=== PATIENT | male | born 1960 | race Caucasian/White ===

== ENCOUNTER 2016-09-02 12:43 | Inpatient (IN) | payer OTHER ==
[2016-08-01 10:22] VITALS: BMI 32.0
--- NOTE | 2016-08-01 10:56 | PAT Medication Instructions ---
Service Date Aug 01, 2016. 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
[2016-08-01 12:09] LABS: BASO % 0.3 %; BASO ABS # 0.03 K/uL (0-0.2); COMPLETE YES; EOS % 2.7 %; HEMATOCRIT 45.8 % (42-52); IG% 0.5 %; LYMPH % 26.9 %; LYMPH ABS # 2.52 K/uL (1.2-3.4); MEAN CELL VOLUME 91.4 fL (80-100); MEAN CORPUSCULAR HEMOGLOBIN 32.3 pg (25-34); MEAN CORPUSCULAR HGB CONC 35.4 g/dl (32-36); MEAN PLATELET VOLUME 9.2 fL (7.4-10.4); MONO % 6.5 %; NEUT % 63.1 %; PLATELET COUNT 308 K/uL (130-400); RED BLOOD COUNT 5.01 M/uL (4.7-6.1); WHITE BLOOD COUNT 9.37 K/uL (4.8-10.8)
[2016-08-01 12:19] LABS: INR 0.9 (0.9-1.1); PROTHROMBIN TIME (PATIENT) 9.8 SECONDS (9.0-12.0)
[2016-08-01 12:46] LABS: BUN/CREATININE RATIO 21.2 (10-20); CALCIUM 9.1 mg/dl (8.5-10.1); CREATININE 0.89 mg/dl (0.60-1.40); POTASSIUM 4.1 mmol/L (3.5-5.1)
[2016-08-01 12:57] LABS: URINE APPEARANCE CLEAR (CLEAR); URINE BILIRUBIN NEG (NEG); URINE COLOR YELLOW; URINE NITRITE NEG (NEG); URINE SPECIFIC GRAVITY 1.017 (1.000-1.030); UROBILINOGEN NEG (NEG)
--- NOTE | 2016-08-01 13:05 | DIAGNOSTIC IMAGING REPORT ---
CHEST PREADMISSION(PA/LAT) CLINICAL HISTORY: Preoperative evaluation. COMPARISON STUDY: Chest radiograph July 15, 2015. FINDINGS: Lung volumes are mildly diminished. This is unchanged. There is no pneumothorax or pleural effusion. Cardiac size is normal. There is no evidence of pulmonary edema. There are post surgical findings within the left shoulder. IMPRESSION: No acute cardiopulmonary findings. Electronically signed by: Dionisio Dawson M.D. 08/01/2016 1:04 PM Dictated Date/Time: 08/01/2016 1:03 PM
[2016-08-01 13:09] LABS: MANUAL MICROSCOPIC REQUIRED? NO; REVIEW REQ? NO
--- NOTE | 2016-08-26 10:12 | HISTORY & PHYSICAL EXAMINATION ---
DATE OF ADMISSION: 09/02/2016 PREOPERATIVE HISTORY AND PHYSICAL SUBJECTIVE CHIEF COMPLAINT: Left shoulder pain. HISTORY OF PRESENT ILLNESS: The patient is a 56-year-old male that presents with left shoulder pain that is getting progressively worse over the past few years. He has tried physical therapy and injections without relief. He would like to proceed with a left shoulder resurfacing and possible removal of hardware. PAST MEDICAL HISTORY: Significant for osteoarthritis. PAST SURGICAL HISTORY: Includes [place] surgery of the left shoulder in 1981, right foot ganglion cyst removal x2, appendectomy and left shoulder hardware. SOCIAL HISTORY: He consumes alcohol occasionally. Denies smoking or tobacco product use. Denies IV drug use. He lives in a 2-sherin house. 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 MEDICATIONS: The patient takes Aleve as needed. ALLERGIES: Verapamil and doxycycline. REVIEW OF SYSTEMS: Denies fevers, chills, weakness, numbness and tingling, tired, thirsty, hot and cold intolerance, abdominal pain, nausea, vomiting, diarrhea, heartburn, chest pain, swelling into the legs or feet, frequency, going to the bathroom, pain or burning with urination, incontinence, wheezing, cough, shortness of breath, depression, thoughts to harm herself or harm others, nervousness and anxiousness. He is positive for joint pain, stiffness and swelling of the left shoulder. OBJECTIVE: GENERAL APPEARANCE: The patient is a 56-year-old male, sitting in no acute distress, well-dressed, well-nourished and the patient is awake, alert and oriented x3. VITAL SIGNS: The patient is 6 feet 8 inches weight 222 pounds, blood pressure 132/86. HEENT: Extraocular movements are intact. PERRLA. NECK: supple with no lymphadenopathy or JVD no thyromegaly. HEART: Regular rate and rhythm with no murmurs or gallops. LUNGS: Clear to auscultation with no wheezing or rhonchi. ABDOMEN: Soft, nontender, nondistended. Normal bowel sounds, no hepatosplenomegaly. EXTREMITIES: Paying particular attention to the left shoulder. He is able to actively flex to 90 degrees, abduct to 60 degrees, externally rotate to 35 degrees. He has decreased strength in all muscle movements. NEUROLOGIC: Cranial nerves II-XII are intact. Pulses were compared bilaterally and were normal. IMAGING: Two views of the left shoulder show stable hardware in the anterior glenoid degenerative humeral side with inferior osteophyte formation of the humeral head. IMPRESSION: Left shoulder degenerative changes and severe osteoarthritis. PLAN: The patient is scheduled to have a left shoulder resurfacing and possible removal of hardware. The patient has failed physical therapy, nonsteroidal anti-inflammatory injections. He notes that his left shoulder pain has decreased his quality of life and he would like to proceed with a left shoulder resurfacing and possible removal of hardware. Risks and benefits were discussed that were included but not limited to blood clot, DVT, blood vessel damage, nerve vessels damage, infection, failure to relieve all symptoms, revision surgeries and anesthesia risks all will discuss with the patient and he wishes to proceed. All questions were answered to his satisfaction. JACKIE
[~2016-09-02] VITALS: Ht 177.8 cm; Wt 101.3 kg
[2016-09-02] MEDS: TRANEXAMIC ACID INJ 1,000 MG in SODIUM CHLORIDE 0.9% 100ML 100 ML IV SCH ×2 (06:30→14:36)
[~2016-09-02 12:43] MED LIST: ACETAMINOPHEN 500 MG TAB PO SCH; ATROPINE SULFATE 0.1 MG/ML 5ML SYR IV PRN; CEFAZOLIN 2000 MG/60 ML D5W 60 ML IV SCH; CeleBREX 200 MG CAP PO SCH; DEXAMETHASONE 4 MG TAB PO SCH; EpHEDrine SULFATE INJ 50 MG/ML AMP IV PRN; FAMOTIDINE 20 MG TAB PO SCH; FENTANYL CITRATE INJ 50 MCG/1 ML 2 ML VIAL IV PRN; GABAPENTIN 300 MG CAP PO SCH; LACTATED RINGER'S 1000ML 1,000 ML IV SCH; LACTATED RINGER'S 1000ML IV SCH; METOCLOPRAMIDE HCL 10 MG TAB PO SCH; NAPR1TAB9 PO; ONDANSETRON INJ 2 MG/ML 2 ML VIAL IV PRN; ROPIVACAINE 0.5% 5 MG/ML 30 ML VIAL ONE; ROPIVACAINE 5MG/ML 30 ML 150 MG, BUPIVACAINE/EPINEPHR 0.5% MPF 30 ML, KETOROLAC TROMETH... INFIL SCH
[2016-09-02 12:58] VITALS: BP 141/91; PULSE 85; TEMP 37.1; O2SAT 97; Ht 177.8 cm; Wt 101.3 kg
[2016-09-02] MEDS ORDERED: DEXAMETHASONE SOD INJ 4 MG/ML VIAL ONE (14:00)
[2016-09-02] MEDS ORDERED: MIDAZOLAM HCL 1 MG/ML 2ML VIAL ONE (14:00)
[2016-09-02] MEDS ORDERED: ROCURONIUM BROMIDE 10 MG/ML 5 ML VIAL ONE ×2 (14:00→16:33)
[2016-09-02] MEDS ORDERED: LIDOCAINE HCL 2% 2 ML VIAL (20MG/ML) ONE (14:00)
[2016-09-02] MEDS ORDERED: ONDANSETRON INJ 2 MG/ML 2 ML VIAL ONE (14:00)
[2016-09-02] MEDS ORDERED: PROPOFOL IV EMULSION 10 MG/ML 20 ML VIAL IV ONE (14:00)
[2016-09-02] MEDS ORDERED: NEOSTIGMINE METHYLSULFATE 5 MG/5 ML SYR ONE (14:00)
[2016-09-02] MEDS ORDERED: FENTANYL CITRATE INJ 50 MCG/1 ML 2 ML VIAL ONE ×2 (14:00→18:56)
[2016-09-02] MEDS ORDERED: GLYCOPYRROLATE INJ 0.2 MG/ML VIAL ONE (14:00)
--- NOTE | 2016-09-02 14:01 | History & Physical Bridge Note ---
H&P Re-Evaluation Bridge Note: I have examined the patient, reviewed the History & Physical and in the interval since the performance of the History & Physical I have noted the following changes of clinical significance: No changes noted
[2016-09-02] MEDS ORDERED: ORTHO JOINT ANESTHETIC ONE (14:26)
[2016-09-02] MEDS ORDERED: BACITRACIN 50000 UNIT VIAL ONE (14:26)
[2016-09-02] MEDS ORDERED: POVIDONE-IODINE OP SOLN 30 ML BTL ONE (14:26)
--- NOTE | 2016-09-02 18:39 | [facility] Post Operative Brief Note ---
Immediate Operative Summary Operative Date Sep 02, 2016. Pre-Operative Diagnosis Left shoulder djd, s/p rosa Post-Operative Diagnosis Same as preoperative diagnosis Procedure(s) Performed Left shoulder resurfacing and removal of deep hardware Surgeon Dr. Castillo [employer] Beauty Advisor Surgeon(s) Josh Gandhi PA-C Estimated Blood Loss 200 Findings bone transfer was well healed, irregularity to shape of humeral head with degenerative changes Specimens 0 Drains 1 hemovac Anesthesia geta Complication(s) None Disposition Recovery Room / PACU
[2016-09-02] MEDS ORDERED: METOCLOPRAMIDE HCL INJ 5 MG/ML 2 ML VIAL IV PRN (19:45)
[2016-09-02] MEDS ORDERED: OXYCODONE HCL IR 5 MG TAB (IMMEDIATE RELEASE) PO PRN (19:45)
[2016-09-02] MEDS ORDERED: ALUMINUM/MAGNESIUM SUSP 30 ML UDC PO PRN (19:45)
[2016-09-02] MEDS ORDERED: ZOLPIDEM TARTRATE 5 MG TAB PO PRN (19:45)
[2016-09-02] MEDS ORDERED: ONDANSETRON INJ 2 MG/ML 2 ML VIAL IV PRN (19:45)
[2016-09-02] MEDS ORDERED: MoRPHine SULFATE 2 MG/ML CARP IV PRN (19:45)
--- NOTE | 2016-09-02 19:47 | Anesthesiology Progress Note ---
Anesthesia Post Op Note Date & Time Sep 02, 2016 at 19:47 Vital Signs Pain Intensity: 0 Vital Signs Past 12 Hours Date Time Temp Pulse Resp B/P Pulse Ox O2 Delivery O2 Flow Rate FiO2 09/02/16 19:35 85 16 112/75 97 Nasal Cannula 3 09/02/16 19:25 84 16 114/75 97 Nasal Cannula 3 09/02/16 19:15 90 16 110/73 98 Mask 10 09/02/16 19:05 83 16 116/83 98 Mask 10 09/02/16 19:04 36.7 83 16 121/80 98 Mask 10 09/02/16 12:58 37.1 85 18 141/91 97 Room Air Notes Mental Status: alert / awake / arousable, participated in evaluation Pt Amnestic to Procedure: Yes Nausea / Vomiting: adequately controlled Pain: adequately controlled Airway Patency, RR, SpO2: stable & adequate BP & HR: stable & adequate Hydration State: stable & adequate Anesthetic Complications: no major complications apparent
[2016-09-02 20:15] VITALS: BP 118/77; PULSE 77; TEMP 36.6; O2SAT 97
--- NOTE | 2016-09-02 20:26 | DIAGNOSTIC IMAGING REPORT ---
LEFT SHOULDER MIN 2 VIEWS ROUTINE CLINICAL HISTORY: Postoperative evaluation of the left shoulder. COMPARISON: Left shoulder radiographs December or 2015. FINDINGS: Alignment of the left shoulder hemiarthroplasty is anatomic. There is no fracture or unexpected radiopaque body. There are skin nancy. Previous glenoid surgery is noted. IMPRESSION: Expected postoperative findings within the left shoulder. Electronically signed by: Dionisio Dawson M.D. 09/02/2016 8:24 PM Dictated Date/Time: 09/02/2016 8:24 PM
[2016-09-02 20:45] VITALS: BP 109/77; PULSE 66; TEMP 37.1; O2SAT 97
[2016-09-02 21:16] VITALS: BP 118/78; PULSE 76; O2SAT 97
[2016-09-02] MEDS: D5W AND 1/2NSS + 20MEQ KCL 1,000 ML IV SCH (21:37)
[2016-09-02] MEDS: OXYCODONE HCL 10 MG TABCR (OXYCONTIN) PO SCH (22:03)
[2016-09-02] MEDS: PREGABALIN 75 MG CAP PO SCH (22:04)
[2016-09-02] MEDS: ACETAMINOPHEN 500 MG TAB PO SCH (22:07)
[2016-09-02 22:15] VITALS: BP 111/73; PULSE 70; TEMP 36.3; O2SAT 97
[2016-09-02 23:15] VITALS: BP 106/69; PULSE 84; TEMP 36.6; O2SAT 96
[2016-09-02] MEDS: KETOROLAC TROMETHAMINE 30 MG/ML VIAL IV. SCH (23:30)
[2016-09-02] MEDS: CEFAZOLIN IV 2,000 MG in DEXTROSE 5% 50ML 50 ML IV SCH (23:37)
[2016-09-03 03:14] VITALS: BP 104/65; PULSE 66; TEMP 36.5; O2SAT 97
--- NOTE | 2016-09-03 04:52 | OPERATIVE REPORT ---
DATE OF OPERATION: 09/02/2016 PREOPERATIVE DIAGNOSIS: Left shoulder degenerative joint disease status post Laci transfer. POSTOPERATIVE DIAGNOSIS: Same. PROCEDURE: Left shoulder humeral resurfacing and removal of hardware deep from the glenoid. SURGEON: Ervin Castillo MD PER DIEM NURSE: Josh Gandhi PA-C who was necessary for assistance of procedure with positioning, prepping, draping, retraction and closure. ANESTHESIA: General endotracheal anesthesia with interscalene block. SPECIMENS: None. COMPLICATIONS: None. ESTIMATED BLOOD LOSS: 200 mL. IMPLANTS: Exactech resurfacing with 25 mm humeral cage 47 mm x 16 mm resurfacing head. INDICATIONS: The patient is a 56-year-old male, who had a number of years ago undergone at another facility a Laci coracoid transfer for treatment of instability. He had a new injury. He had obvious loss of fixation of the fragment with a nonunion and prominence of the screw. I performed a revision procedure with 3.0 headless cannulated screws. The fragment appeared to heal, his instability resolved, but he had persistent pain in the shoulder. He developed degenerative changes with inferior osteophyte formation off of the humeral head and joint space narrowing. Failing conservative measures including injection, anti-inflammatories and physical therapy, he wished to proceed with surgery. Risks, benefits and alternatives of surgery including but not limited to infection, DVT, pain, stiffness, need for urgent surgery, failure to relieve all symptoms, damage to blood vessels, damage to nerves, risks of anesthesia were discussed with the patient and he wished to proceed. We elected to proceed with a shoulder resurfacing given his relatively young age and high activity level. DESCRIPTION OF PROCEDURE: The patient was identified, laterality was confirmed and marked. He received a preoperative antibiotic as well as interscalene block. He was placed in supine position and then placed in a slight beach chair type position with the Tenet positioner. Shoulder was prepped and draped in usual sterile manner with ChloraPrep. Arms were secured with the spider positioner. I reutilized his previous anterior surgical approach sharply incising the skin utilizing Bovie electrocautery to achieve hemostasis. Developed the deltopectoral interval. He had fairly significant amount of scars, difficult to initially find the deltopectoral interval once again, once we had developed this, we were able to identify the deltoid. There were significant adhesions of the deltoid to the humerus, they were debrided with a Reyes elevator. I identified the region of his previous subscapularis repair. There were two suture anchors that were removed and a previous suture that was removed. I elevated the subscapularis off with a peel type technique. There was fair amount of interposed scar both superficial as well as deep to the subscapularis that was mobilized. I then placed a Fukuda retractor to mobilize the humeral head and evaluate the glenoid. We had good visualization of the glenoid vault with the Fukuda retractor in place, cartilage of the glenoid was okay. There was no motion to the transferred fragment upon probing. The screw heads were not prominent and at this stage did not appear to be removed. We then turned our attention to the resurfacing portion of the procedure. He had some irregularity to the humeral head, it was flattened anteriorly as well as centrally. This is either secondary to degenerative change or some early avascular necrotic type change. We had difficulty in getting proper exposure to the humeral head as we are having difficulty in achieving external rotation as he had had instability procedures as well as a Laci transfer to limit his external rotation and increase the shoulder stability. Did some further releasing little bit more distally on the humerus and then we needed to piece the guide pin and reamer in situ as opposed to the standard placing of the guide pin and then placing the reamer over top. We placed the reamer in position after we had placed the guide pin with the aiming guide and then placed the reamer into the shoulder, then placed the guide pin through this and then assembled the reamer on power and reamed down to bone. The reamer initially started with a size 50 which was a little too large, so we downsized to a size 47. We had reaming of the peripheral bone, but was not getting quite down to the central part of the humeral head as the head had flattened a bit. We debrided this with combination of a curette and rongeur to establish good bleeding bony bed. I then over reamed to a depth of 25 mm over the guide pin and then attempt for spikes for the post. There was some inferior osteophytes that we debrided as well as some anterior osteophytes, this local bone was then morselized and placed into the post for resurfacing. I then impacted the post leaving the post a little bit proud and then I engaged the definitive humeral head after I checked it with a trial, this was a 25 mm humeral cage with a 47 mm x 16 mm resurfacing head. I then impacted into the stem and then impacted this down completely and then down flush to bone. I then reexamined the glenoid and some of the soft tissue more anteriorly that I had placed over the screw heads on an initial procedure then peeled off during the manipulation by getting exposure to the humeral head. One of the screw heads was a little bit I thought too prominent without the soft tissue covering it, so we removed one of the screws. The other two did not appear to be in any position which should cause any difficulty and were left in place. The wound was thoroughly irrigated. The deep tissues were anesthetized with an ortho mix solution. I then repaired the subscapularis first by placing a 5.5 mm Healicoil suture anchor into the lesser tuberosity and passed the 3 sutures in a horizontal mattress fashion and then completing a double row type repair laterally with a running #5 FiberWire. The rotator interval was then closed with interrupted #2 Ultrabraid suture. The wound was irrigated once again. Betadine soak was performed. A deep drain was placed. The deltopectoral interval was closed with interrupted #1 Ethibond sutures, subcutaneous tissue was closed with interrupted 2-0 Vicryl suture and the skin with nancy. Sterile dressing was applied and sling placed. All needle and sponge counts were correct at the end of the procedure. The patient was transferred to the PACU in stable condition without apparent complication. I attest to the content of the Intraoperative Record and any orders documented therein. Any exceptions are noted below. JACKIE
[2016-09-03] MEDS: KETOROLAC TROMETHAMINE 30 MG/ML VIAL IV. SCH (05:40)
[2016-09-03] MEDS: ACETAMINOPHEN 500 MG TAB PO SCH (05:40)
[2016-09-03 06:53] LABS: HEMATOCRIT 39.2 % (42-52); MEAN CELL VOLUME 90.1 fL (80-100); MEAN CORPUSCULAR HEMOGLOBIN 31.3 pg (25-34); MEAN CORPUSCULAR HGB CONC 34.7 g/dl (32-36); MEAN PLATELET VOLUME 8.9 fL (7.4-10.4); PLATELET COUNT 305 K/uL (130-400); RED BLOOD COUNT 4.35 M/uL (4.7-6.1); WHITE BLOOD COUNT 19.68 K/uL (4.8-10.8)
[2016-09-03 07:20] LABS: BUN/CREATININE RATIO 14.8 (10-20); CALCIUM 8.1 mg/dl (8.5-10.1); CREATININE 1.1 mg/dl (0.60-1.40); POTASSIUM 4.3 mmol/L (3.5-5.1)
[2016-09-03 07:22] VITALS: BP 115/69; PULSE 58; TEMP 36.4; O2SAT 98
[2016-09-03] MEDS: CEFAZOLIN IV 2,000 MG in DEXTROSE 5% 50ML 50 ML IV SCH (07:27)
[2016-09-03] MEDS: D5W AND 1/2NSS + 20MEQ KCL 1,000 ML IV SCH (07:27)
--- NOTE | 2016-09-03 07:58 | Orthopedic Progress Note ---
Orthopedic Progress Note Date of Service Sep 03, 2016. Subjective Post OP Day: 1 (Left shoulder resurfacing and removal of deep hardware) Reports: feeling well, pain controlled w PO medications, Denies: SOB, calf pain , chest pain, complaints, light headedness, nausea / vomiting Objective N/V intact, capillary refill less than 2 sec., dressing C/D/I, A&O x3 radial/med/ulnar nerves intact Date Time Temp Pulse Resp B/P Pulse Ox O2 Delivery O2 Flow Rate FiO2 09/03/16 07:22 36.4 58 16 115/69 98 Room Air 09/03/16 03:14 36.5 66 16 104/65 97 Room Air 09/02/16 23:30 Nasal Cannula 2.0 09/02/16 23:15 36.6 84 18 106/69 96 Nasal Cannula 2.0 09/02/16 22:15 36.3 70 18 111/73 97 Nasal Cannula 3.0 09/02/16 21:16 76 16 118/78 97 Nasal Cannula 2.0 09/02/16 20:45 37.1 66 18 109/77 97 Nasal Cannula 3.0 09/02/16 20:15 97 Nasal Cannula 3.0 09/02/16 20:15 36.6 77 16 118/77 97 Nasal Cannula 3.0 09/02/16 20:15 97 Nasal Cannula 3.0 09/02/16 19:59 78 18 107/71 98 Nasal Cannula 3 09/02/16 19:45 36.7 79 18 108/71 97 Nasal Cannula 3 09/02/16 19:35 85 16 112/75 97 Nasal Cannula 3 09/02/16 19:25 84 16 114/75 97 Nasal Cannula 3 09/02/16 19:15 90 16 110/73 98 Mask 10 09/02/16 19:05 83 16 116/83 98 Mask 10 09/02/16 19:04 36.7 83 16 121/80 98 Mask 10 09/02/16 12:58 37.1 85 18 141/91 97 Room Air Laboratory Results 24 Hours: Test 09/03/16 06:40 Hematocrit 39.2 % Hemoglobin 13.6 g/dL Assessment & Plan Assessment: POD #1 s/p Left shoulder resurfacing and removal of deep hardware -will do PT today, if tolerates will d/c home. plan for [facility] in the office in two weeks, sooner if having any issues Discharge Planning Discharge Planning: home with oppt
[2016-09-03] MEDS ORDERED: ONDA8TAB6 PO (08:00)
[2016-09-03] MEDS ORDERED: CLB200 PO (08:00)
[2016-09-03] MEDS ORDERED: OXYSR10 PO (08:00)
[2016-09-03] MEDS ORDERED: ACET-1138 PO (08:00)
[2016-09-03] MEDS ORDERED: RXC5 PO (08:00)
--- NOTE | 2016-09-03 08:02 | Discharge Instructions ---
Discharge Instructions Admission Reason for Admission: Left Shoulder Osteoarthritis Discharge Discharge Diagnosis / Problem: Left shoulder resurfacing and removal of deep hardware Discharge Goals Goal(s): Decrease discomfort, Improve function, Increase independence Activity Recommendations Activity Limitations: as noted below Lifting Limitations: until after follow-up appointment (no lifting left arm) . Instructions / Follow-Up Instructions / Follow-Up ACTIVITY RECOMMENDATIONS: SELF CARE INSTRUCTIONS AFTER TOTAL SHOULDER ARTHROPLASTY A. You may do daily exercises as taught in physical therapy while in hospital. No lifting with the operative arm. Please schedule your outpatient physical therapy appointment to begin within 2-3 days after leaving the hospital. Specific restrictions will be written on your physical therapy prescription that is provided to you. B. You are to wear your sling/immobilizer at all times EXCEPT when performing your daily exercises, participating in physical therapy and for hygiene purposes. C. You may perform dry, daily dressing changes. Please keep your incision covered. You may shower 48 hours after surgery. Do not apply soap or any ointment/ lotions directly over incision. Do not soak incision in bath tub/swimming pool. D. You may use ice as needed to operative shoulder. SPECIAL CARE INSTRUCTIONS: VERY IMPORTANT TO READ AND REVIEW A. There are a few signs you need to watch for after you are home. Call [facility] at [phone] if you experience any of the followin. Increased severe shoulder pain. Some pain is expected especially when you exercise. 2. Increased swelling in you shoulder or arm; pain or swelling in either upper extremity. 3. Any fluid drainage from the incision. 4. Shortness of breath or chest pain. B. Please call [facility] at [phone] if you have any questions or concerns about your operation or recovery. C. Call your physician if: 1. Temperature is greater than 101 degrees (F). 2. Pain is not relieved by prescribed pain medications. 3. Increase drainage or redness from incision. 4. Unanswered questions or concerns. FOLLOW UP VISIT: Please call [facility] at [phone] to schedule a follow up appointment with Dr. Castillo or his PA in 12-14 days from your surgery date. Current Hospital Diet Patient's current hospital diet: Regular Diet Discharge Diet Recommended Diet: Regular Diet Procedures Procedures Performed: Left shoulder resurfacing and removal of deep hardware Pending Studies Studies pending at discharge: no Medical Emergencies . Who to Call and When: Medical Emergencies: If at any time you feel your situation is an emergency, please call 911 immediately. . Non-Emergent Contact Non-Emergency issues call your: Primary Care Provider, Surgeon . "Provider Documentation" section prepared by Gerald Tafoya. VTE Core Measure Inpt VTE Proph given/why not?: LISA Ulrich's [place] Drug Monitoring Program Search Results: patient reviewed within database, no issues identified
[2016-09-03] MEDS ORDERED: FERROUS GLUCONATE 324 MG TAB PO SCH (08:30)
[2016-09-03] MEDS: PREGABALIN 75 MG CAP PO SCH (08:54)
[2016-09-03] MEDS: OXYCODONE HCL 10 MG TABCR (OXYCONTIN) PO SCH (08:54)
[2016-09-03] MEDS ORDERED: MULTIVITAMIN TAB PO SCH (09:00)
[2016-09-03] MEDS ORDERED: PANTOprazole SOD 40 MG TAB PO SCH (09:00)
[2016-09-03 10:30] VITALS: BP 115/69; PULSE 58; TEMP 36.4; O2SAT 98
[2016-09-04] MEDS ORDERED: CeleBREX 200 MG CAP PO SCH (09:00)
--- NOTE | 2016-09-07 14:36 | DISCHARGE SUMMARY ---
ADMISSION DIAGNOSIS: Left shoulder osteoarthritis. DISCHARGE DIAGNOSIS: Left shoulder resurfacing and removal of deep hardware. CONSULTS: None. PROCEDURES: On 09/02/2016 the patient had the removal of deep hardware and resurfacing of the left shoulder. HISTORY OF PRESENT ILLNESS: The patient is a 56-year-old male that presents with left shoulder pain that is getting progressively worse over the past few years. He has tried physical therapy and injections without relief. He would like to proceed with a left shoulder resurfacing and possible removal of hardware. HOSPITAL COURSE: Postop day 1 the patient is feeling well. Pain is controlled with p.o. medications. He denies shortness of breath, chest pain, lightheadedness, nausea or vomiting. His radial, median, and ulnar nerves were intact. The dressing was clean, dry and intact. He was to do physical therapy today. If tolerated he would be discharged to home. Plan is for outpatient physical therapy at [facility]. DISCHARGE CONDITION: Stable. DISPOSITION: Home with self care. MEDICATIONS: Acetaminophen 1000 mg by mouth every 8 hours, Celebrex 200 mg by mouth twice daily, Zofran 8 mg by mouth every 8 hours as needed for nausea, OxyContin 10 mg by mouth every 12 hours, oxycodone 5-10 mg by mouth every 4 hours as needed for pain. INSTRUCTIONS: The patient is to have no lifting of the left arm. The patient may do daily exercises as taught in physical therapy. No lifting with his operative arm. He is to schedule outpatient physical therapy 2-3 days after leaving the hospital. He is to wear the sling or immobilizer at all times except when performing daily exercises and participating in hygiene purposes. He is to perform dry daily dressing changes, keep the incision covered, no use of ointment or lotions directly over the incision, no soaking in bathtubs or swimming pools. He is to call [facility] if he notices an increase in shoulder pain, increase in swelling or drainage from the incision site, shortness of breath or chest pain. He is to follow up with Dr. Castillo or his PA 12-14 days from the day of the surgery. JACKIE
== END 2016-09-03 11:13 | disposition home or self-care (01) | DRG 508 ==
LOC: ENRESERVTM → ENRESERVDT → C.ACU 12:43 → C.3E 13:54
PROVIDERS: ADMIT Orthopaedic Surgery; ATTEND Orthopaedic Surgery
PROC: 0RUK0JZ Supplement Left Shoulder Joint with Synthetic Substitute, Open Approach (ICD-10-PCS; principal; 2016-09-02 15:15)
PROC: 0RPK04Z Removal of Internal Fixation Device from Left Shoulder Joint, Open Approach (ICD-10-PCS; principal; 2016-09-02 15:15)
DX: M19.012 Primary osteoarthritis, left shoulder (principal); E66.9 Obesity, unspecified; Z68.32 Body mass index [BMI] 32.0-32.9, adult; Z72.0 Tobacco use

== ENCOUNTER 2020-11-19 11:03 | Inpatient (IN) ==
--- NOTE | 2020-10-30 14:21 | PAT Medication Instructions ---
Medication Instructions Date of Service October 30, 2020 Home Medications multivitamin 1 tab PO QAM DO NOT take the morning of surgery multivitamin 1 tab PO QAM Other Notes If you have any questions please call us at [phone] or [phone] or [phone] or [phone]
--- NOTE | 2020-11-03 12:55 | Anesthesiology Consultation ---
Date of Service November 03, 2020 Assessment & Plan (1) Encounter for pre-operative examination: Chart Review Chart Review: Acceptable Risk for Surgery (pending preop Covid testing results ) and Patient seen in Pre Admission Testing Per PAT appt on 11/03/20, patient denies any recent travel. No known Covid positive contacts or Covid related symptoms. No known Covid infections in the past 90 days. Preop Covid testing scheduled 11/12/20= will await results. Educated on importance of self quarantining, social distancing and wearing mask in public both for the patient and household contacts. Left shoulder arthroscopy, open hardware removal, glenoid revision 07/31/2015 = done under [place] with glide scope #4. ETT #7.5. Atraumatic. Teaching & Discussion Pre-Anesthesia Teaching/Discussion Notes: Instructed NPO after midnight before surgery,except medications with 15 cc of water. Medication instructions provided according to the [facility] guidelines. History Surgery Operation Date: 11/19/20 11:00 Proposed Procedures p Left Shoulder Convert Zaid Arthroplasty to Reveresed Total Arthroplasty(Left) - Nura Abreu MD Height/Weight Height: 5 ft 8.5 in Weight: 85.5 kg Allergies Allergy/AdvReac Type Severity Reaction Status Date / Time doxycycline Allergy Mild RASH, AND Verified 10/30/20 10:48 NASAL/EAR SWELLING verapamil Allergy Mild RASH Verified 10/30/20 10:48 Medications Home Medications Medication Instructions Recorded Confirmed Last Taken multivitamin 1 tab PO QAM 03/29/19 10/30/20 Unknown Past Medical History Medical History (Updated 11/03/20 @ 16:33 by Juliane Cherry PA-C) Arthritis 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 many years ago History of shock Many years ago- had electrocution - sinus arrhythmia now on EKG 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 [employer] History of skin cancer S/p removal - above lip- had plastic surgery afterwards Hx of migraines SNHL (sensorineural hearing loss) No hearing aids Exercise / Class Metabolic Activity II 4-5 Yardwork/Stairs/Walk up hill (one flight of stairs - no chest pain or SOB ) Past Family History Family History Mother Hypertension Myocardial infarction 80s Coronary heart disease Father Hypertension Lung cancer Myocardial infarction mid 70's Coronary heart disease Brother Seizures Coronary heart disease Other No family history of adverse response to anesthesia No family history of bleeding disorder Denies family history of Ovarian cancer Prostate cancer Breast cancer Colorectal cancer Past Surgical History Surgical History H/O foot surgery Right x 2 (CYST REMOVED) H/O metal removed from eye H/O shoulder surgery LEFT X 5 H/O wrist surgery LEFT History of colonoscopy Hx of appendectomy [place] teeth removed Past Anesthesia History No Hx of Anesthesia Complications and No Family Hx of Anesthesia Complications History of PONV No Hx of PONV and No Hx of Motion Sickness Social History Smoking Status: Never smoker tobacco type: smokeless tobacco Do You Dip or Chew Tobacco: Yes (1 CAN EVERY 2 DAYS) Hx Alcohol Use: No Hx Substance Use: No Review of Systems Hx of snoring - did have sleep study- no MARÍA ELENA per patient Patient denies chest pain, shortness of breath, dyspnea on exertion, reflux, cough, wheezing, palpitations. No hx of seizures, stroke, [place]. No hx of blood clots or blood transfusions Physical Exam Vital Signs VITALS BP 124/80 P 64 TEMP 97.5 SP02 98% RESP 16 Constitutional no acute distress ENMT Mouth: no TMJ clicking Thyromental Distance: > or= 3.5 Finger Breadths (3.5) Mallampati Class: II Missing molars Caps and crowns to molars and side teeth Neck + limited neck extension (mild to moderate ) Respiratory normal respiratory effort; no respiratory distress Auscultation: lungs clear to auscultation bilaterally; no wheezes Cardiovascular Rate/Rhythm: regular rate and regular rhythm Heart Sounds: no murmur Vessels: no carotid bruit Musculoskeletal Spine: + pain with cervical ROM Extremities: extremities normal to inspection Psychiatric Orientation: alert Testing Laboratory Results 11/03/20 13:20 11/03/20 13:20 PT 9.7 Seconds (9.0-12.0) 11/03/20 13:20 INR 1.0 (0.9-1.1) 11/03/20 13:20 APTT 27.6 Seconds (21.0-31.0) 11/03/20 13:20 Urine Color Yellow 11/03/20 13:20 Urine Appearance Clear (Clear) 11/03/20 13:20 Urine pH 7.5 (4.5-7.5) 11/03/20 13:20 Ur Specific [place] 1.007 (1.000-1.030) 11/03/20 13:20 Urine Protein Negative (Negative) 11/03/20 13:20 Urine Glucose (UA) Negative (Negative) 11/03/20 13:20 Urine Ketones Negative (Negative) 11/03/20 13:20 Urine Nitrite Negative (Negative) 11/03/20 13:20 Ur Leukocyte Esterase Negative (Negative) 11/03/20 13:20 Blood Type O Positive 11/03/20 13:20 Antibody Screen NEGATIVE 11/03/20 13:20 Electrocardiogram Date: 11/03/20 Sinus bradycardia with marked sinus arrhythmia at 49 bpm. Otherwise normal EKG. Compared to EKG from August 01, 2016no significant change was found. Chest X-Ray Date: 11/03/20 Findings: + NAD
--- NOTE | 2020-11-03 13:51 | XRay Report ---
XR chest Pre-admission PA/Lat CLINICAL HISTORY: Preoperative evaluation. COMPARISON STUDY: Chest radiograph August 01, 2016. FINDINGS: Lung volumes are normal. Lungs are clear. There is no pneumothorax or pleural effusion. Car diac size is normal. Mediastinal contours are normal. There is no evidence for pulmonary edema. Posto perative findings within the left shoulder are incidentally noted. IMPRESSION: No acute cardiopulmonary findings. ACT 112: Negative or not required by law. Electronically signed by: Dionisio Dawson M.D. 11/03/2020 1:50 PM
[2020-11-03 13:55] LABS: Basophils # (auto) 0.05 K/uL (0-0.2); Basophils % (auto) 0.6 %; Eosinophils # (auto) 0.51 K/uL (0-0.5); Eosinophils % (auto) 5.7 %; Hematocrit (blood only) 45.5 % (42-52); Immature Granulocytes # (auto) 0.02 K/uL (0.00-0.02); Immature Granulocytes % (auto) 0.2 %; Lymphocytes # (auto) 2.69 K/uL (1.2-3.4); Lymphocytes % (auto) 30.1 %; Mean Corpuscular Hemoglobin 31.2 pg (25-34); Mean Corpuscular Hgb Conc 35.2 g/dL (32-36); Mean Corpuscular Volume 88.7 fL (80-100); Mean Platelet Volume 9.1 fL (7.4-10.4); Monocytes # (auto) 0.68 K/uL (0.11-0.59); Monocytes % (auto) 7.6 %; Neutrophils # (auto) 4.98 K/uL (1.4-6.5); Neutrophils % (auto) 55.8 %; Platelet Count 307 K/uL (130-400); RDW Coefficient of Variation 12.4 % (11.5-14.5); Red Blood Count 5.13 M/uL (4.7-6.1); White Blood Count 8.93 K/uL (4.8-10.8)
--- NOTE | 2020-11-03 14:10 | Electrocardiogram Report ---
Test Reason : Blood Pressure : / mmHG Vent. Rate : 049 BPM Atrial Rate : 049 BPM P-R Int : 160 ms QRS Dur : 086 ms QT Int : 434 ms P-R-T Axes : 033 049 054 degrees QTc Int : 392 ms Sinus bradycardia with marked sinus arrhythmia Otherwise normal ECG When compared with ECG of 01-AUG-2016 11:04, No significant change was found Confirmed by Festus Koehler ([id number]) on 11/03/2020 2:09:51 PM Referred By: Nura Abreu Confirmed By:Festus Koehler
[2020-11-03 14:12] LABS: Partial Thromboplastin Time 27.6 Seconds (21.0-31.0); Prothrombin Time 9.7 Seconds (9.0-12.0)
[2020-11-03 14:29] LABS: Appearance Urine Clear (Clear); Bilirubin Urine Negative (Negative); Blood Urine Negative (Negative); Color Urine Yellow; Glucose Urine UA Negative (Negative); Ketones Urine Negative (Negative); Leukocyte Esterase Urine Negative (Negative); Nitrite Urine Negative (Negative); Protein Urine Negative (Negative); Specific Gravity Urine 1.007 (1.000-1.030); Urobilinogen Urine Negative (Negative); pH Urine 7.5 (4.5-7.5)
[2020-11-03 15:50] LABS: Albumin Level 3.9 gm/dl (3.4-5.0); BUN Creatinine Ratio 16.7 (10-20); Creatinine Clr Calc Pharmacy 112.4 ml/min; Est GFR (African American) 115.7; Est GFR (Non-African American) 99.9
[2020-11-04 06:14] LABS: Estimated Average Glucose 105 mg/dl; Hemoglobin A1C 5.3 % (4.5-5.6)
--- NOTE | 2020-11-17 20:38 | History & Physical Report ---
Date of Service November 17, 2020 Assessment & Plan (1) Full thickness rotator cuff tear: Chronic pain and instability with weakness left shoulder post left shoulder resurfacing. He has full thickness tearing rotator cuff and subscapularis. He has failed conservative measures. Treatment options discussed with patient and he would like to proceed with surgical intervention. Risks, benefits and alternatives to surgery including but not limited to infection, DVT, pain, stiffness, need for revision surgery, damage to blood vessels, damage to nerves, PE, , were discussed with the patient and they wish to proceed. Plan for conversion of left shoulder resurfacing to reverse total shoulder ar throplasty, removal of retained hardware glenoid. Surgery scheduled for [facility] on 11/19/[address] Abreu. All questions answered. F/u post operatively. Rotator cuff tear trauma status: unspecified whether traumatic Laterality: left Qualified Code(s): M75.122 - Complete rotator cuff tear or rupture of left shoulder, not specified as traumatic History of Present Illness Chief Complaint: left shoulder pain Primary Care Provider: Mahogany Byrne DO 60 year old male with PMHx significant for hearing loss, electrocution, and migraines presents with chronic left shoulder pain. Has history of previous left shoulder resurfacing hemiarthroplasty. Initially had done well but has been having gradually worsening pain over last several years. He has failed conservative management including NSAIDs, therapy, and subacromial injection. Pain interfering with his daily activities and is debilitating. He would like to proceed with revision surgery. Patient denies headaches, sweats, fevers, chills, double vision, blurred vision, cough, sore throat, dysphagia, chest pain, sob, wheezing, n/v/d/c, numbness, tingling, fatigue, urinary symptoms, mood disorders. ROS positive for left shoulder pain and stiffness. 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 History of skin cancer S/p removal - above lip- had plastic surgery afterwards Hx of migraines SNHL (sensorineural hearing loss) No hearing aids Surgical History H/O foot surgery Right x 2 (CYST REMOVED) H/O metal removed from eye H/O shoulder surgery LEFT X 5 H/O wrist surgery LEFT History of colonoscopy Hx of appendectomy [place] teeth removed Family History Mother Hypertension Myocardial infarction 80s Coronary heart disease Father Hypertension Lung cancer Myocardial infarction mid 70's Coronary heart disease Brother Seizures Coronary heart disease Other No family history of adverse response to anesthesia No family history of bleeding disorder Denies family history of Ovarian cancer Prostate cancer Breast cancer Colorectal cancer Social History Smoking Status: Never smoker Second Hand Exposure: No; Do You Dip or Chew Tobacco: Yes (1 CAN EVERY 2 DAYS); Tobacco Cessation Education Requested by Patient: No Hx Alcohol Use: No Hx Substance Use: No Preferred Language: Taiwanese Communication Ability: Effective Visual Impairment: No Limitations Hearing Ability: Normal 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 Beliefs That Will Affect Care: None marital status: Current Living Situation: Spouse current occupational status: employed 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 Feels Safe at Home: Yes Safety Concerns: Feels Safe At This Time Childhood Exposure to Second-Hand Smoke: No caffeine: No during the past year weight has: remained stable Dental Care, Regularly: Yes Physical Activity Frequency: Does not Exercise Seatbelt Use: always Sunscreen Use: No Assistive Devices: None Review of Systems All systems reviewed & are unremarkable except as noted in HPI & below Physical Exam Constitutional: well developed and well nourished; no acute distress Eyes: PERRL, conjunctivae normal, anicteric sclerae ENMT: external ear and nose normal, oropharynx normal Neck: trachea midline, no thyromegaly Respiratory: normal respiratory effort, lungs clear to auscultation Cardiovascular: RRR, no murmur, no edema Musculoskeletal: Left shoulder: Tenderness coracoid and posterior glenoid. Active painful ROM, passive painful ROM. Abduction to 60 degrees, FF to 70 degrees, ER to 70 degrees. Positive impingement signs. Positive lift off and belly press. Strength decreased in all directions Skin: no rashes, warm and dry Neurologic: patellar DTR's 2+ bilat, sensation intact Psychiatric: A+Ox3, euthymic affect Results & Data ([facility]) Diagnostic Findings Left shoulder radiographs demonstrate stable appearance left shoulder s/p resurfacing. No lucency or evidence of loosening. CT arthrogram demonstrates complete subscapularis tear as well as parital, possibly full thickness tearing supraspinatus
[~2020-11-19 11:03] MED LIST changes: -ATROPINE SULFATE 0.1 MG/ML 5ML SYR IV PRN; +BUPIVACAINE 0.5 % 5 MG/1 ML PF 10ML VIAL ONE; -CEFAZOLIN 2000 MG/60 ML D5W 60 ML IV SCH; -CeleBREX 200 MG CAP PO SCH; -DEXAMETHASONE 4 MG TAB PO SCH; -EpHEDrine SULFATE INJ 50 MG/ML AMP IV PRN; -FENTANYL CITRATE INJ 50 MCG/1 ML 2 ML VIAL IV PRN; -GABAPENTIN 300 MG CAP PO SCH; +GABAPENTIN 600 MG DOSE PO SCH; -LACTATED RINGER'S 1000ML 1,000 ML IV SCH; -LACTATED RINGER'S 1000ML IV SCH; +LR 15ML/HR IV SCH; -METOCLOPRAMIDE HCL 10 MG TAB PO SCH; +METOCLOPRAMIDE HCL 10 MG TABLET PO SCH; -NAPR1TAB9 PO; -ONDANSETRON INJ 2 MG/ML 2 ML VIAL IV PRN; -ROPIVACAINE 0.5% 5 MG/ML 30 ML VIAL ONE; -ROPIVACAINE 5MG/ML 30 ML 150 MG, BUPIVACAINE/EPINEPHR 0.5% MPF 30 ML, KETOROLAC TROMETH... INFIL SCH; +TRANEXAMIC ACID 1,000 MG **IV Intra-op IV SCH; +TRANEXAMIC ACID 1,000 MG **IV Pre-op IV SCH; +ceFAZolin 2000MG 2,000 MG/15 ML SYR IV SCH; +dexAMETHasone 4 MG TAB PO SCH
--- NOTE | 2020-11-19 12:01 | History & Physical Bridge Note ---
Date of Service November 19, 2020 History & Physical Bridge Note I have examined the patient, reviewed the History & Physical and in the interval since the performance of the History & Physical I have noted the following changes of clinical significance: no changes noted
[2020-11-19] MEDS ORDERED: MIDAZOLAM HCL 1 MG/ML 2ML VIAL ONE (12:58)
[2020-11-19] MEDS ORDERED: fentaNYL citrate 100 MCG/2 ML VIAL ONE (12:58)
[2020-11-19] MEDS ORDERED: EpINEphrine HCL INJ 1 MG/ML 1ML SYRINGE ONE (13:08)
[2020-11-19] MEDS ORDERED: FLUMAZENIL 0.1 MG/1 ML 10 ML VIAL IV PRN (13:09)
[2020-11-19] MEDS ORDERED: LABETALOL HCL IV 5 MG/ML 20ML IV PRN (13:09)
[2020-11-19] MEDS ORDERED: HYDROmorphone INJ 1 MG/ML SYRINGE IV PRN (13:09)
[2020-11-19] MEDS ORDERED: ATROPINE SULFATE 0.1 MG/ML 10ML SYR IV PRN (13:09)
[2020-11-19] MEDS ORDERED: PROMETHAZINE HCL 12.5 MG in SODIUM CHLORIDE 0.9% 50 ML IV PRN (13:09)
[2020-11-19] MEDS ORDERED: ePHEDrine sulfate 50 MG/ML AMP IV PRN (13:09)
[2020-11-19] MEDS ORDERED: NALOXONE HCL 0.4 MG/1 ML VIAL/CARP IV PRN ×2 (13:09→18:53)
[2020-11-19] MEDS ORDERED: ONDANSETRON INJ 2 MG/ML 2 ML VIAL IV PRN ×2 (13:09→18:53)
[2020-11-19] MEDS ORDERED: PROPOFOL IV EMULSION 10 MG/ML 20 ML VIAL IV ONE (14:32)
[2020-11-19] MEDS ORDERED: SUCCINYLCHOLINE CHLORIDE 20 MG/ML 10 ML VIAL IV ONE (14:32)
[2020-11-19] MEDS ORDERED: ePHEDrine sulfate 50 MG/ML SYR ONE (14:32)
[2020-11-19] MEDS ORDERED: DEXAMETHASONE SOD INJ 4 MG/ML VIAL ONE (14:37)
--- NOTE | 2020-11-19 17:56 | Operative Report ---
Post Operative Report Pre & Post Diagnosis Operation Date: 11/19/20 13:50 Pre-Op Diagnosis: Primary Osteoarthritis Left Shoulder Glenohumeral Joint; Painful Hemiarthroplasty, History of [place] Procedure, Rotator Cuff Tendonopathy Post-Op Diagnosis: Primary Osteoarthritis Left Shoulder Glenohumeral Joint; Painful Hemiarthroplasty, History of Laci Procedure, Rotator Cuff Tendonopathy I identified the patient and participated in the time-out.: Yes Procedure Operation Date: 11/19/20 13:50 Actual Procedures p Left Shoulder Convert Zaid Arthroplasty to Reveresed Total Arthroplasty(Left), removal deep hardware including hemiarthroplasty and screws from [place] procedure.- Nura Abreu MD Surgeon Nura Abreu MD Truck Hop Justo MCKEON Estimated Blood Loss 40 Findings Consistent with Post-Op Diagnosis Specimens Explant humeral component with attached bone Drains 2 Hemovac Anesthesia Type General Regional Complications none Disposition Accompanied Patient To Recovery: No Disposition: Recovery Room Indications 60-year-old male with chronic pain and dysfunction left shoulder. Patient's had a total of 6 left shoulder operations including a Laci procedure in the past and a more recent hemiarthroplasty several years ago. Patient has limited function as he can only raise his arm 70 degrees and abduct 70 degrees and had chronic pain. Description of Procedure The patient was taken to the operating room and anesthetized under regional block and general anesthetic. The patient was positioned on the operating table in a 30 beachchair position with a towel roll under the medial border of the left scapula. The arm was draped free to be able to manipulate the shoulder as needed. The left upper extremity was prepped and draped in usual sterile fashion. Exam demonstrated anterior shoulder instability with anterior translation load shift type test. Patient good passive range of motion with 90 degrees of external rotation. Patient had old widened scar in the deltopectoral interval. Patient had some mild chronic deltoid atrophy. An anterior deltopectoral approach was performed. A longitudinal incision was made in the deltopectoral interval via the old scar which was utilized.. The skin was incised sharply. Subcutaneous flaps were elevated off the fascia. There were old Ethibond sutures near the deltopectoral interval that marked it. This interval was developed and the Ethibond sutures were excised. The coracoid was palpable and I stay lateral to the coracoid with our dissection. The conjoined tendon was not present due to being transferred with a Laci procedure. There is no biceps tendon identified. There was thin subscapularis capsular tissue which was all intact and old sutures from repair with sutures from Helicoil anchors more medial and #5 FiberWire laterally which were all covered with scarred bursal type tissue. All old sutures were removed.The the thin but intact subscapularis tendon and capsular tissue consistent with rotator cuff tendinopathy was taken down off the lesser tuberosity using a subperiosteal peel dissection. There were large inferior osteophytes that have formed adjacent to the implant including osteophytes around the lesser tuberosity. Inferior and lateral osteophytes were all resected using an artist chisel and a rongeur.. A Ryees elevator was used to assist in releasing the capsule of the neck of the humerus. With the humeral component now which exposed and all osteophytes trimmed around the component I used first an osteotome artist chisel around the component but it was well fixed and then the oscillating saw cut around the base of the component. We try to disengage the humeral head from the bone ingrowth post but they were not disengaging at all. We worked the saw around the implant and then used the extraction device and were able to remove the entire humeral head implant which was well fixed the underlying bone along with the post. There is a small amount of bone around the postop was removed from the metaphysis with good hard bone in the metaphysis. Attention was then taken to the humeral preparation. The cutting guide was placed into the humeral head. It was positioned at 20 of retroversion. Oscillating saw was used to resect the humeral head giving the cut above the lev el of the posterior rotator cuff insertion site. The humerus was then prepared for the stem. I used the ascend flex stem from [employer]. The sizing broaches were used followed by trial broaches up to a size 4B standard. Oscillating saw was used to revise the cut so that was in line with the 4B stem. The appropriate sized cut protector was placed. The humerus was then retracted posterior to the glenoid. The glenoid was inspected and there was moderate osteoarthritic changes but still articular cartilage and the labrum that was around the glenoid. There was obviously the widened glenoid with the well-healed Laci procedure anteriorly but the screws were not easily visible. This time I released the anterior capsule inferior and posterior inferior capsule using both electrocautery on bone and Reyes elevator. I also released the triceps tendon. I used a rongeur to remove the bone until the buried screws were identified. The screws were small cannulated screws from an old mini frag set. We had the Synthes screw set removal set but no screwdriver match the screws. Was able to remove some of the bone so that the screws can be grasped with a clamp device and hand removed however one of the screws snapped and some of the threads of the screw were retained within the glenoid. Looking at the trajectory of that particular screw was felt that it would not get in the way of the replacement it was left in. We did remove some of the screw with a trephine device but the other part was too deep and he did not want to remove any significant bone just to remove the screw. The remainder of the [place] fragment was trimmed down so he would not get any anterior impingement with internal rotation. The glenoid was sized for a 29 baseplate. The guide for the baseplate was posit ioned in a 10 inferior tilt and the central drill hole was made. The reamer for the 29 baseplate was used. The reamer for the central boss was used. The depth gauge was used to measure for the central screw. The perform reversed 29 mm standard baseplate was screwed into position. It was noted at the bone was very hard. There was excellent fixation of the screws. The base plate was transfixed with superior and inferior locking screws and anterior and posterior compression screws with stable fixation. The fan reamer was used for the 42 millimeter glenoid sphere. After irrigation the 42 mm standard glenoid sphere was impacted onto the baseplate and the security screw was tightened. Attention was taken back to the humerus. The cut protector was removed and the +0 high offset humeral tray trial was assembled to the trial stem rotated appropriately to get bony coverage and then screwed in position. A trial reduction was performed. A +9 mm 42 reversed trial insert demonstrated good stability and no shuck. The trials were removed. 3 drill holes are made into the harder bone in the bicipital groove area and 3 #5 FiberWire sutures were placed transosseously. The canal was irrigated with antibiotic solution with bacitracin. The final component was assembled. The final component was 4B standard PTC stem ([employer]) attached to the plus or high offset tray and a 42+9 reversed insert polyethylene. This was then impacted into the humerus with a tight press-fit. I did place some cancellous bone graft from the prior humeral head cut around the stem to enhance the fixation. It was reduced to the glenoid sphere. Stability was verified. Subscapularis was repaired with the #5 FiberWire sutures using Gordo-Marcos suture technique. Lateral row soft tissue repair was performed with #1 Vicryl [id number] sutures. The arm was taken through a range of motion which demonstrated 135 degrees forward elevation 90 was abduction and 60 degrees X rotation and 75 degrees internal rotation. The implant was stable through the range of motion tested. The wound was copiously irrigated. 2 Hemovac drains were placed. The deltopectoral interval was closed with [id number] #1 Vicryl sutures and two #2 FiberWire sutures to solomon the interval.. The subcutaneous tissues were closed with 2-0 Vicryl sutures. The skin was closed with nancy. Sterile dressings were applied and a shoulder immobilizer. Justo MCKEON my physician assistant activities director assisted in the procedure to the entire procedure including patient positioning arm positioning prepping and draping soft tissue retraction instrument management suture management and performed the subcutaneous and skin closure and will participate in the postoperative care of the patient. I attest to the content of the Intraoperative Record and any orders documented therein. Any exceptions are noted below.
[2020-11-19] MEDS: fentaNYL citrate 100 MCG/2 ML VIAL IV PRN ×4 (18:05→18:20)
--- NOTE | 2020-11-19 18:14 | XRay Report ---
XR shoulder LT min 2V routine CLINICAL HISTORY: Post shoulder surgery COMPARISON: August 02, 2016 DISCUSSION: There is been removal of the patient's left shoulder hemiarthroplasty, and replacement wi th a total reverse left shoulder arthroplasty. There is no dislocation. There are overlying skin stap les and surgical drains. IMPRESSION: Postsurgical changes of a reverse total left shoulder arthroplasty. No evidence of disloc ation. ACT 112: Negative or not required by law. Electronically signed by: Herman Underwood M.D. 11/19/2020 6:12 PM
--- NOTE | 2020-11-19 18:39 | Anesthesiology Progress Note ---
Date of Service November 19, 2020 Anesthesia Post Procedure Vital Signs Vital Signs: Temp Pulse Resp BP Pulse Ox 11/19/20 18:30 36.4 C L 85 16 132/70 98 11/19/20 18:20 74 16 120/76 95 11/19/20 18:10 73 16 120/75 98 11/19/20 18:00 80 16 103/71 100 11/19/20 17:54 36.2 C L 78 16 117/67 100 11/19/20 11:50 36.5 C 58 L 16 122/73 100 Pain Intensity Left Shoulder: Pain Intensity: 5 Transfer of Care Handoff Completed per policy Notes Mental Status: alert / awake / arousable Patient Amnestic to Procedure: Yes Nausea / Vomiting: adequately controlled Pain: adequately controlled Airway Patency, RR, SpO2: stable & adequate BP & HR: stable & adequate Hydration State: stable & adequate Anesthetic Complications: no major complications apparent
[2020-11-19] MEDS ORDERED: oxyCODONE HCL IR 5 MG TAB (IMMEDIATE RELEASE) PO PRN (18:53)
[2020-11-19] MEDS ORDERED: MAGNESIUM HYDROXIDE SUSP 30 ML UDC PO PRN (18:53)
[2020-11-19] MEDS ORDERED: bisacodyL 10 MG SUPP PR PRN (18:53)
[2020-11-19] MEDS ORDERED: METOCLOPRAMIDE HCL INJ 5 MG/ML 2 ML VIAL IV PRN (18:53)
[2020-11-19] MEDS ORDERED: HYDROmorphone INJ 0.5 MG/0.5 ML SYR IV PRN (18:53)
[2020-11-19] MEDS ORDERED: TAMSULOSIN HCL 0.4 MG CAP PO PRN (18:53)
[2020-11-19] MEDS: SODIUM CHLORIDE 0.9% 1000ML 1,000 ML IV SCH (20:42)
[2020-11-19] MEDS: DOCUSATE SODIUM 100 MG CAP PO SCH (20:43)
[2020-11-19] MEDS: ACETAMINOPHEN 500 MG TAB PO SCH (20:44)
[2020-11-19] MEDS ORDERED: SENNA 8.6 MG TAB PO SCH (21:00)
[2020-11-19] MEDS: ceFAZolin 2000MG 2,000 MG/15 ML SYR IV SCH (22:55)
[2020-11-20] MEDS: SODIUM CHLORIDE 0.9% 1000ML 1,000 ML IV SCH (05:59)
[2020-11-20] MEDS: ceFAZolin 2000MG 2,000 MG/15 ML SYR IV SCH (05:59)
[2020-11-20] MEDS: ACETAMINOPHEN 500 MG TAB PO SCH (06:00)
[2020-11-20 06:04] LABS: Hematocrit (blood only) 42.9 % (42-52); Hemoglobin 14.8 g/dL (14.0-18.0); Immature Granulocytes # (auto) 0.04 K/uL (0.00-0.02); Immature Granulocytes % (auto) 0.2 %; Lymphocytes # (auto) 1.21 K/uL (1.2-3.4); Lymphocytes % (auto) 7.5 %; Mean Corpuscular Hemoglobin 31.5 pg (25-34); Mean Corpuscular Hgb Conc 34.5 g/dL (32-36); Mean Corpuscular Volume 91.3 fL (80-100); Monocytes # (auto) 0.98 K/uL (0.11-0.59); Neutrophils # (auto) 13.99 K/uL (1.4-6.5); Neutrophils % (auto) 86.3 %; Platelet Count 291 K/uL (130-400); RDW Coefficient of Variation 12.5 % (11.5-14.5); RDW Standard Deviation 42.4 fL (36.4-46.3); White Blood Count 16.22 K/uL (4.8-10.8)
[2020-11-20 06:37] LABS: BUN Creatinine Ratio 18.6 (10-20); Calcium 8.7 mg/dl (8.5-10.1); Est GFR (African American) 113.9 ml/min; Est GFR (Non-African American) 98.3 ml/min
--- NOTE | 2020-11-20 07:38 | Orthopedic Progress Note ---
Date of Service November 20, 2020 Assessment & Plan (1) Full thickness rotator cuff tear: POD#1 Left conversion hemiarthroplasty to reverse total shoulder arthroplasty -PT/OT-no shoulder motion -Pain management -DVT prophylaxis-SCDs -AM labs-hemoglobin 14.8. Leukocytosis likely reactive -D/C planning-plan on discharge home today. Admission and Anticipated Discharge Date Admission Date: November 19, 2020 Subjective Patient resting in bed comfortably. Doing well. Pain controlled. Block still in effect. No complaints. Denies chest pain, sob, dizziness, headache, n/v/d. Review of Systems Review of Systems: All systems reviewed & are unremarkable except as noted in HPI & below Physical Exam Physical Exam: Sling in place. Dressing is c/d/i, hemovac in place. Fingers mobile. Weakness in hand secondary to block Constitutional: well developed and well nourished; no acute distress Results & Data ([facility]) Vital Signs (Past 12 Hours) Vital Signs Temp Pulse Resp BP Pulse Ox 11/20/20 07:32 36.5 C 45 L 17 108/62 98 11/20/20 02:12 36.7 C 62 16 101/57 L 97 11/19/20 22:00 36.7 C 65 16 106/63 94 11/19/20 20:50 36.4 C L 72 16 109/65 97 11/19/20 19:50 36.7 C 82 16 107/72 98 (1) Full thickness rotator cuff tear Rotator cuff tear trauma status: unspecified whether traumatic Laterality: left Qualified Code(s): M75.122 - Complete rotator cuff tear or rupture of left shoulder, not specified as traumatic
[2020-11-20] MEDS ORDERED: MULTIVITAMIN TAB PO SCH ×2 (09:00)
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
[2020-11-20] MEDS: DOCUSATE SODIUM 100 MG CAP PO SCH (10:09)
--- NOTE | 2020-11-21 18:04 | Discharge Summary ---
Date of Service November 21, 2020 Admission HPI Per Admitting Provider 60 year old male with PMHx significant for hearing loss, electrocution, and migraines presents with chronic left shoulder pain. Has history of previous left shoulder resurfacing hemiarthroplasty. Initially had done well but has been having gradually worsening pain over last several years. He has failed conservative management including NSAIDs, therapy, and subacromial injection. Pain interfering with his daily activities and is debilitating. He would like to proceed with revision surgery. Patient denies headaches, sweats, fevers, chills, double vision, blurred vision, cough, sore throat, dysphagia, chest pain, sob, wheezing, n/v/d/c, numbness, tingling, fatigue, urinary symptoms, mood disorders. ROS positive for left shoulder pain and stiffness. Admission Exam Per Admitting Provider Constitutional: well developed and well nourished; no acute distress Eyes: PERRL, conjunctivae normal, anicteric sclerae ENMT: external ear and nose normal, oropharynx normal Neck: trachea midline, no thyromegaly Respiratory: normal respiratory effort, lungs clear to auscultation Cardiovascular: RRR, no murmur, no edema Musculoskeletal: Left shoulder: Tenderness coracoid and posterior glenoid. Active painful ROM, passive painful ROM. Abduction to 60 degrees, FF to 70 degrees, ER to 70 degrees. Positive impingement signs. Positive lift off and belly press. Strength decreased in all directions Skin: no rashes, warm and dry Neurologic: patellar DTR's 2+ bilat, sensation intact Psychiatric: A+Ox3, euthymic affect Principal Diagnosis Painful left shoulder hemiarthroplasty Discharge Exam Constitutional well developed and well nourished; no acute distress Eyes PERRL, conjunctivae normal, anicteric sclerae ENMT external ear and nose normal, oropharynx normal Neck trachea midline, no thyromegaly Respiratory normal respiratory effort, lungs clear to auscultation Cardiovascular RRR, no murmur, no edema Skin no rashes, warm and dry Neurologic patellar DTR's 2+ bilat, sensation intact Psychiatric A+Ox3, euthymic affect Discharge Data Allergies Allergy/AdvReac Type Severity Reaction Status Date / Time doxycycline Allergy Mild RASH, AND Verified 11/19/20 11:34 NASAL/EAR SWELLING verapamil Allergy Mild RASH Verified 11/19/20 11:34 Consultations 11/16/20 10:37 Consult Hospitalist Routine Procedures Performed Operation Date: 11/19/20 13:50 Actual Procedures p Left Shoulder Convert Zaid Arthroplasty to Reveresed Total Arthroplasty(Left) - Nura Abreu MD Ordered Studies 11/19/20 05:00 US - OR guided needle placemen Routine Hospital Course (1) Full thickness rotator cuff tear: Patient presented for same day admission following left shoulder hemiarthroplasty convert to reverse total shoulder arthroplasty on 11/19/20. He tolerated procedure well. The Patient had an uneventful hospital course. Post- operatively, his activity was progressed and well tolerated. They participated in PT without difficulty. Labs remained stable- lowest hemoglobin recorded: 14.[address] Cheo Newsome of medical service was consulted for medical management during admission. Pain controlled on oral medications. Please refer to daily progress notes and PT notes for complete details. After exam on 11/20/20, patient was felt to be stable for discharge home. Patient will f/u in the office in about 2 weeks for further evaluation including x-rays and incision check, sooner if having any issues or concerns. POD#1 Left conversion hemiarthroplasty to reverse total shoulder arthroplasty -PT/OT-no shoulder motion -Pain management -DVT prophylaxis-SCDs -AM labs-hemoglobin 14.8. Leukocytosis likely reactive -D/C planning-plan on discharge home today. Lab Results 11/03/20 11/03/20 11/03/20 Range/Units 13:20 13:20 13:20 WBC 8.93 (4.8-10.8) K/uL RBC 5.13 (4.7-6.1) M/uL Hgb 16.0 (14.0-18.0) g/dL Hct 45.5 (42-52) % MCV 88.7 (80-100) fL MCH 31.2 (25-34) pg MCHC 35.2 (32-36) g/dL RDW Std Deviation 40.0 (36.4-46.3) fL RDW Coeff of Saad 12.4 (11.5-14.5) % Plt Count 307 (130-400) K/uL MPV 9.1 (7.4-10.4) fL Immature Gran % (Auto) 0.2 % Neut % (Auto) 55.8 % Lymph % (Auto) 30.1 % [place] % (Auto) 7.6 % Eos % (Auto) 5.7 % Baso % (Auto) 0.6 % Neut # (Auto) 4.98 (1.4-6.5) K/uL Lymph # (Auto) 2.69 (1.2-3.4) K/uL [place] # (Auto) 0.68 H (0.11-0.59) K/uL Eos # (Auto) 0.51 H (0-0.5) K/uL Baso # (Auto) 0.05 (0-0.2) K/uL Immature Gran # (Auto) 0.02 (0.00-0.02) K/uL PT 9.7 (9.0-12.0) Seconds INR 1.0 (0.9-1.1) APTT 27.6 (21.0-31.0) Seconds PTT Ratio 1.0 Sodium (136-145) mmol/L Potassium (3.5-5.1) mmol/L Chloride (98-107) mmol/L Carbon Dioxide (21-32) mmol/L Anion Gap (3-11) BUN (7-18) mg/dl Creatinine (0.6-1.4) mg/dl Est Cr Clr Drug Dosing ml/min Est GFR ( Amer) Est GFR (Non-Af Amer) BUN/Creatinine Ratio (10-20) Glucose (70-99) mg/dl Estimat Average Glucose mg/dl Hemoglobin A1c (4.5-5.6) % Calcium (8.5-10.1) mg/dl Albumin (3.4-5.0) gm/dl Urine Color Urine Appearance (Clear) Urine pH (4.5-7.5) Ur Specific [place] (1.000-1.030) Urine Protein (Negative) Urine Glucose (UA) (Negative) Urine Ketones (Negative) Urine Blood (Negative) Urine Nitrite (Negative) Urine Bilirubin (Negative) Urine Urobilinogen (Negative) Ur Leukocyte Esterase (Negative) COVID-19 Eval Order SARS-CoV-2, RNA, NAAT (NEGATIVE) Blood Type O Positive Antibody Screen NEGATIVE 11/03/20 11/03/20 11/03/20 Range/Units 13:20 13:20 13:20 WBC (4.8-10.8) K/uL RBC (4.7-6.1) M/uL Hgb (14.0-18.0) g/dL Hct (42-52) % MCV (80-100) fL MCH (25-34) pg MCHC (32-36) g/dL RDW Std Deviation (36.4-46.3) fL RDW Coeff of Saad (11.5-14.5) % Plt Count (130-400) K/uL MPV (7.4-10.4) fL Immature Gran % (Auto) % Neut % (Auto) % Lymph % (Auto) % [place] % (Auto) % Eos % (Auto) % Baso % (Auto) % Neut # (Auto) (1.4-6.5) K/uL Lymph # (Auto) (1.2-3.4) K/uL [place] # (Auto) (0.11-0.59) K/uL Eos # (Auto) (0-0.5) K/uL Baso # (Auto) (0-0.2) K/uL Immature Gran # (Auto) (0.00-0.02) K/uL PT (9.0-12.0) Seconds INR (0.9-1.1) APTT (21.0-31.0) Seconds PTT Ratio Sodium 138 (136-145) mmol/L Potassium 4.0 (3.5-5.1) mmol/L Chloride 107 (98-107) mmol/L Carbon Dioxide 26 (21-32) mmol/L Anion Gap 5.0 (3-11) BUN 13 (7-18) mg/dl Creatinine 0.76 (0.6-1.4) mg/dl Est Cr Clr Drug Dosing 112.4 ml/min Est GFR ( Amer) 115.7 Est GFR (Non-Af Amer) 99.9 BUN/Creatinine Ratio 16.7 (10-20) Glucose 94 (70-99) mg/dl Estimat Average Glucose 105 mg/dl Hemoglobin A1c 5.3 (4.5-5.6) % Calcium 9.0 (8.5-10.1) mg/dl Albumin 3.9 (3.4-5.0) gm/dl Urine Color Yellow Urine Appearance Clear (Clear) Urine pH 7.5 (4.5-7.5) Ur Specific [place] 1.007 (1.000-1.030) Urine Protein Negative (Negative) Urine Glucose (UA) Negative (Negative) Urine Ketones Negative (Negative) Urine Blood Negative (Negative) Urine Nitrite Negative (Negative) Urine Bilirubin Negative (Negative) Urine Urobilinogen Negative (Negative) Ur Leukocyte Esterase Negative (Negative) COVID-19 Eval Order SARS-CoV-2, RNA, NAAT (NEGATIVE) Blood Type Antibody Screen 11/19/20 11/19/20 11/20/20 Range/Units Unknown Unknown 05:44 WBC 16.22 H (4.8-10.8) K/uL RBC 4.70 (4.7-6.1) M/uL Hgb 14.8 (14.0-18.0) g/dL Hct 42.9 (42-52) % MCV 91.3 (80-100) fL MCH 31.5 (25-34) pg MCHC 34.5 (32-36) g/dL RDW Std Deviation 42.4 (36.4-46.3) fL RDW Coeff of Saad 12.5 (11.5-14.5) % Plt Count 291 (130-400) K/uL MPV 9.0 (7.4-10.4) fL Immature Gran % (Auto) 0.2 % Neut % (Auto) 86.3 % Lymph % (Auto) 7.5 % [place] % (Auto) 6.0 % Eos % (Auto) 0.0 % Baso % (Auto) 0.0 % Neut # (Auto) 13.99 H (1.4-6.5) K/uL Lymph # (Auto) 1.21 (1.2-3.4) K/uL [place] # (Auto) 0.98 H (0.11-0.59) K/uL Eos # (Auto) 0.00 (0-0.5) K/uL Baso # (Auto) 0.00 (0-0.2) K/uL Immature Gran # (Auto) 0.04 H (0.00-0.02) K/uL PT (9.0-12.0) Seconds INR (0.9-1.1) APTT (21.0-31.0) Seconds PTT Ratio Sodium (136-145) mmol/L Potassium (3.5-5.1) mmol/L Chloride (98-107) mmol/L Carbon Dioxide (21-32) mmol/L Anion Gap (3-11) BUN (7-18) mg/dl Creatinine (0.6-1.4) mg/dl Est Cr Clr Drug Dosing ml/min Est GFR ( Amer) Est GFR (Non-Af Amer) BUN/Creatinine Ratio (10-20) Glucose (70-99) mg/dl Estimat Average Glucose mg/dl Hemoglobin A1c (4.5-5.6) % Calcium (8.5-10.1) mg/dl Albumin (3.4-5.0) gm/dl Urine Color Urine Appearance (Clear) Urine pH (4.5-7.5) Ur Specific [place] (1.000-1.030) Urine Protein (Negative) Urine Glucose (UA) (Negative) Urine Ketones (Negative) Urine Blood (Negative) Urine Nitrite (Negative) Urine Bilirubin (Negative) Urine Urobilinogen (Negative) Ur Leukocyte Esterase (Negative) COVID-19 Eval Order Covid19 IDNow [facility] SARS-CoV-2, RNA, NAAT NEGATIVE (NEGATIVE) Blood Type Antibody Screen 11/20/20 Range/Units 05:44 WBC (4.8-10.8) K/uL RBC (4.7-6.1) M/uL Hgb (14.0-18.0) g/dL Hct (42-52) % MCV (80-100) fL MCH (25-34) pg MCHC (32-36) g/dL RDW Std Deviation (36.4-46.3) fL RDW Coeff of Saad (11.5-14.5) % Plt Count (130-400) K/uL MPV (7.4-10.4) fL Immature Gran % (Auto) % Neut % (Auto) % Lymph % (Auto) % [place] % (Auto) % Eos % (Auto) % Baso % (Auto) % Neut # (Auto) (1.4-6.5) K/uL Lymph # (Auto) (1.2-3.4) K/uL [place] # (Auto) (0.11-0.59) K/uL Eos # (Auto) (0-0.5) K/uL Baso # (Auto) (0-0.2) K/uL Immature Gran # (Auto) (0.00-0.02) K/uL PT (9.0-12.0) Seconds INR (0.9-1.1) APTT (21.0-31.0) Seconds PTT Ratio Sodium 139 (136-145) mmol/L Potassium 4.0 (3.5-5.1) mmol/L Chloride 109 H (98-107) mmol/L Carbon Dioxide 24 (21-32) mmol/L Anion Gap 6.0 (3-11) BUN 15 (7-18) mg/dl Creatinine 0.79 (0.6-1.4) mg/dl Est Cr Clr Drug Dosing 107.0 ml/min Est GFR ( Amer) 113.9 Est GFR (Non-Af Amer) 98.3 BUN/Creatinine Ratio 18.6 (10-20) Glucose 109 H (70-99) mg/dl Estimat Average Glucose mg/dl Hemoglobin A1c (4.5-5.6) % Calcium 8.7 (8.5-10.1) mg/dl Albumin (3.4-5.0) gm/dl Urine Color Urine Appearance (Clear) Urine pH (4.5-7.5) Ur Specific [place] (1.000-1.030) Urine Protein (Negative) Urine Glucose (UA) (Negative) Urine Ketones (Negative) Urine Blood (Negative) Urine Nitrite (Negative) Urine Bilirubin (Negative) Urine Urobilinogen (Negative) Ur Leukocyte Esterase (Negative) COVID-19 Eval Order SARS-CoV-2, RNA, NAAT (NEGATIVE) Blood Type Antibody Screen Total Time Total Time Spent Total Time Spent (In Minutes): 20 Discharge Plan Discharge Items Patient Disposition: Home - Self-Care Reason For Visit: Primary Osteoarthritis Left Shoulder Discharge Diagnosis: Left shoulder rotator cuff tear, painful hemiarthroplasty Activity: Per Instructions section Non-emergency contact: Surgeon Call non-emergency contact if: you have any medication questions, your pain is not controlled, your pain is worsening, your pain is concerning for you, you have a fever, your temperature is above 101, your wound has increased redness and your wound has increased drainage Follow-up/Referrals: Mahogany Byrne, [Primary Care Provider] - Diet: Regular Addtl Attending Provider Instructions: ACTIVITY RECOMMENDATIONS: SELF CARE INSTRUCTIONS AFTER TOTAL SHOULDER ARTHROPLASTY REVERSE A. You may do daily exercises as taught in physical therapy while in hospital. No lifting with the operative arm. B. You are to wear your sling/immobilizer at all times EXCEPT when performing your daily exercises and for hygiene purposes. C. You may perform dry, daily dressing changes. Please keep your incision cove red. You may shower 48 hours after surgery. Do not apply soap or any ointment/lotions directly over incision. Do not soak incision in bath tub/swimming pool. D. You may use ice as needed to operative shoulder. SPECIAL CARE INSTRUCTIONS: VERY IMPORTANT TO READ AND REVIEW A. There are a few signs you need to watch for after you are home. Call [facility] at [phone] if you experience any of the followin. Increased severe shoulder pain. Some pain is expected especially when you exercise. 2. Increased swelling in you shoulder or arm; pain or swelling in either upper extremity. 3. Any fluid drainage from the incision. 4. Shortness of breath or chest pain. B. Please call [facility] at [phone] if you have any questions or concerns about your operation or recovery. C. Call your physician if: 1. Temperature is greater than 101 degrees (F). 2. Pain is not relieved by prescribed pain medications. 3. Increase drainage or redness from incision. 4. Unanswered questions or concerns. FOLLOW UP VISIT: Please call [facility] at [phone] to schedule a follow up appointment with Dr. Abreu or his PA in 12-14 days from your surgery date. Pending Studies at Discharge: No Stand-Alone Forms: My [facility] [employer], Smoking Cessation Medications and DC Order Prescriptions: New acetaminophen 500 mg Tablet 1,000 mg PO Q8 Qty: 60 RF: 0 oxycodone 5 mg Tablet 5 - 10 mg PO .Q4h-6h MDD 6 PRN (Reason: pain) Qty: 30 RF: 0 cefadroxil 500 mg capsule 500 mg PO BID Qty: 14 RF: 0 Continued multivitamin tablet 1 tab PO QAM RF: 0 Discharge Orders: Discharge Order (Routine); Ordered 11/20/20 Ordered By: Alireza Bullard/Other Patient Handouts: Total Shoulder Replacement Surgery, Managing Post-Op Pain at Home Admission Data Admit Date/Time: 11/19/20 17:59 Attending Provider: Nura Abreu Admit Provider: Nura Abreu Primary Care Provider: Mahogany Byrne Other Providers: Cheo Newsome Other Interventions: Discharge Summary Assessment (RN) Last Done: 11/20/20 10:12
== END 2020-11-20 10:44 | disposition home or self-care (01) | DRG 483 ==
LOC: ASU 11:03 → 3E 17:59